=== PATIENT | female | born 1990 | race Caucasian/White ===

== ENCOUNTER 2019-07-25 16:09 | Emergency (ER) | payer BC, OTHER ==
[~2019-07-25] VITALS: Ht 165.1 cm; Wt 115.4 kg
[~2019-07-25 16:09] MED LIST: COLA100C2; FERR325T
[2019-07-25 16:46] LABS: BASO # 0.1 10^3/uL (0.0-0.2); BASO % 0.5 % (0.0-1.0); EOS # 0.4 10^3/uL (0.0-0.5); EOS % 3.8 % (0.0-3.0); HEMATOCRIT 35.8 % (36.0-47.0); HEMOGLOBIN 11.5 g/dl (12.0-15.5); LYMPH # 1.8 10^3/uL (1.5-5.0); LYMPH % 18.9 % (24.0-44.0); MEAN CORPUSCULAR HEMOGLOBIN 27.2 pg (27.0-33.0); MEAN CORPUSCULAR HGB CONC 32.1 g/dl (32.0-36.5); MEAN CORPUSCULAR VOLUME 84.6 fl (80.0-96.0); MONO # 0.5 10^3/uL (0.0-0.8); MONO % 5.5 % (0.0-5.0); NEUTROPHILS # 6.6 10^3/uL (1.5-8.5); PLATELET COUNT, AUTOMATED 279 10^3/uL (150-450); RED BLOOD COUNT 4.23 10^6/uL (4.00-5.40); WHITE BLOOD COUNT 9.3 10^3/uL (4.0-10.0)
[2019-07-25 17:24] LABS: ALBUMIN 3.4 GM/DL (3.2-5.2); ALT/SGPT 29 U/L (12-78); BILIRUBIN,DIRECT 0.1 MG/DL (0.0-0.2); BILIRUBIN,TOTAL 0.4 MG/DL (0.2-1.0); BLOOD UREA NITROGEN 15 MG/DL (7-18); CALCIUM LEVEL 8.8 MG/DL (8.5-10.1); CARBON DIOXIDE LEVEL 24 MEQ/L (21-32); CHLORIDE LEVEL 108 MEQ/L (98-107); CREATININE FOR GFR 0.78 MG/DL (0.55-1.30); GLOMERULAR FILTRATION RATE > 60.0 (>60); GLUCOSE, FASTING 117 MG/DL (70-100); LIPASE 83 U/L (73-393); POTASSIUM SERUM 4.6 MEQ/L (3.5-5.1); SODIUM LEVEL 139 MEQ/L (136-145)
[2019-07-25 17:30] LABS: HCG, SERUM QUALITATIVE NEGATIVE (NEGATIVE)
[2019-07-25] MEDS ORDERED: KETOROLAC 60 MG/2 ML VIAL (J1885) IM ONE (17:45)
--- NOTE | 2019-07-25 18:01 | REPVR ---
PROCEDURE INFORMATION: Exam: CT Abdomen And Pelvis Without Contrast Exam date and time: 07/25/2019 5:43 PM Clinical history: 29 years old, female; Abdominal pain; Flank; Left; Additional info: Left flank pain TECHNIQUE: Imaging protocol: Computed tomography of the abdomen and pelvis without contrast. Radiation optimization: All CT scans at this facility use at least one of these dose optimization techniques: automated exposure control; mA and/or kV adjustment per patient size (includes targeted exams where dose is matched to clinical indication); or iterative reconstruction. COMPARISON: No relevant prior studies available. FINDINGS: Liver: The liver at mid clavicular line measures 16.2 cm. Gallbladder and bile ducts: The gallbladder is contracted with no stones. Pancreas: Normal. No ductal dilation. Spleen: Normal. No splenomegaly. Adrenals: Normal. No mass. Kidneys and ureters: Minimal nonobstructing left renal calculus. Stomach and bowel: Unremarkable. No obstruction. No mucosal thickening. Appendix: A normal appendix is seen. Intraperitoneal space: Unremarkable. No free air. No significant fluid collection. Vasculature: Unremarkable. No abdominal aortic aneurysm. Lymph nodes: Unremarkable. No enlarged lymph nodes. Bladder: There is bladder wall thickening, however, the bladder is nondistended and is nonspecific. Reproductive: Tampon in position. Right ovarian cyst measuring 3.3 x 2.1 x 3.5 cm. Bones/joints: Unremarkable. No acute fracture. Soft tissues: Broad-based fat filled umbilical hernia. IMPRESSION: 1. Small nonobstructing left renal calculus in the lower pole. No ureteral calculi are evident and there is no evidence of obstructive uropathy. 2. Right ovarian cyst measuring 3.3 x 2.1 x 3.5 cm. Electronically signed by: Behzad Gomez On 07/25/2019 18:00:55 PM
[2019-07-25] MEDS ORDERED: KETO10TAB PO (18:54)
[2019-07-25] MEDS ORDERED: BACT800T5 PO (18:54)
[2019-07-25 19:05] VITALS: BP 142/81
[2019-07-25] MEDS ORDERED: BACTRIM 160MG/800MG DS TAB PO ONE (19:30)
== END 2019-07-25 19:27 | disposition home or self-care (01) ==
LOC: M ED 16:09
DX: N39.0 Urinary tract infection, site not specified (principal); N20.0 Calculus of kidney; E66.9 Obesity, unspecified; F17.200 Nicotine dependence, unspecified, uncomplicated; N83.291 Other ovarian cyst, right side; Z79.899 Other long term (current) drug therapy
CPT/HCPCS: 74176; 80048; 80076; 81001; 83690; 84703; 85025; 87088; 87186; 96372; 99283; J1885